=== PATIENT | female | born 1950 | race Caucasian/White ===

== ENCOUNTER 2017-05-01 16:29 | Inpatient (IN) | payer MEDICARE ==
[~2017-05-01] VITALS: Ht 147.3 cm; Wt 38.3 kg
[2017-05-01 16:58] LABS: BASOPHILS % (AUTO) 0.2 % (0.0-5.0); HEMATOCRIT 38.3 % (36-48); LYMPHOCYTES % (AUTO) 3.5 % (21.0-51.0); MEAN CORPUSCULAR HEMOGLOBIN 31.1 pg (27.0-33.0); MEAN CORPUSCULAR HGB CONC 33.7 g/dL (32.0-36.0); MEAN CORPUSCULAR VOLUME 92.2 fL (79-99); MONOCYTES % (AUTO) 3.5 % (3.0-13.0); NEUTROPHILS % (AUTO) 92.8 % (40.0-77.0); PLATELET COUNT (AUTO) 196 K/uL (130-400); RED BLOOD CELL COUNT(AUTO) 4.15 MIL/uL (4.00-5.50); RED CELL DISTRIBUTION WIDTH 14.4 % (11.0-15.5); WHITE BLOOD COUNT (AUTO) 8.1 K/uL (4.8-10.8)
[2017-05-01 17:15] LABS: CREATININE 0.5 mg/dL (0.5-1.5)
[2017-05-01] MEDS ORDERED: IPRATROPIUM/ALBUTEROL SULFATE 3 ML SOLUTION IH ONE (17:15)
[2017-05-01] MEDS ORDERED: SODIUM CHLORIDE 0.9% 1000ML 1,000 ML IV ONE (17:16)
[2017-05-01] MEDS ORDERED: METHYLPREDNISOLONE SOD SUCC 125MG/2ML VIAL ONE (17:16)
[2017-05-01 17:28] LABS: ALBUMIN 2.6 g/dL (3.5-5.0); BILIRUBIN,TOTAL 0.3 mg/dL (0.2-1.0); CREATINE KINASE MB 0.5 ng/mL (0.5-3.6); TOTAL PROTEIN, SERUM 6.5 g/dL (6.0-8.3)
[2017-05-01 17:31] LABS: INR 0.9 (0.85-1.15); PARTIAL THROMBOPLASTIN TIME 26.5 SEC (26.3-35.5); PROTHROMBIN TIME 9.5 SEC (9.6-11.6)
[2017-05-01] MEDS ORDERED: LEVOFLOXACIN 500 MG/D5W 100 ML 100 ML ONE (18:31)
[2017-05-01] MEDS ORDERED: OSELTAMIVIR PHOSPHATE 75 MG CAP ONE (18:31)
[2017-05-02] MEDS ORDERED: ONDANSETRON HCL 4 MG/2 ML VIAL IV PRN (00:15)
[2017-05-02] MEDS ORDERED: HYDRALAZINE HCL 20 MG/ML VIAL IV PRN (00:15)
[2017-05-02] MEDS ORDERED: ACETAMINOPHEN 325 MG TAB PO PRN (00:15)
[2017-05-02] MEDS ORDERED: IPRATROPIUM/ALBUTEROL SULFATE 3 ML SOLUTION IH ONE ×5 (03:03→18:04)
[2017-05-02] MEDS: IPRATROPIUM/ALBUTEROL SULFATE 3 ML SOLUTION IH SCH ×5 (06:00→21:23)
[2017-05-02] MEDS ORDERED: METHYLPREDNISOLONE SOD SUCC 40MG/ML 1ML ONE (07:46)
[2017-05-02] MEDS ORDERED: ENOXAPARIN SODIUM 30 MG/0.3 ML SQ ONE (07:47)
[2017-05-02] MEDS ORDERED: OSELTAMIVIR PHOSPHATE 75 MG CAP ONE (07:47)
[2017-05-02] MEDS ORDERED: FAMOTIDINE/PF 20 MG/2 ML VIAL IV ONE (07:47)
[2017-05-02] MEDS: ENOXAPARIN SODIUM 30 MG/0.3 ML SQ SCH (09:00)
[2017-05-02] MEDS: FAMOTIDINE/PF 20 MG/2 ML VIAL IV SCH ×2 (09:00→21:12)
[2017-05-02] MEDS: METHYLPREDNISOLONE SOD SUCC 125MG/2ML VIAL IV SCH ×2 (09:00→21:12)
[2017-05-02] MEDS ORDERED: LEVOFLOXACIN 500 MG/D5W 100 ML 100 ML ONE (17:18)
[2017-05-02 18:40] VITALS: BP 138/69
[2017-05-02] MEDS ORDERED: BIOT5000 PO (20:03)
[2017-05-02] MEDS ORDERED: FISH1CAP49 PO (20:03)
[2017-05-02] MEDS ORDERED: CALC1CAP4 PO (20:03)
[2017-05-02] MEDS ORDERED: ROFL500T PO (20:03)
[2017-05-02] MEDS ORDERED: ASPI-1197 PO (20:03)
[2017-05-02] MEDS ORDERED: ASCO100033 PO (20:03)
[2017-05-02] MEDS ORDERED: CHOL200074 PO (20:03)
[2017-05-02] MEDS ORDERED: MAGN400C PO (20:03)
[2017-05-02] MEDS ORDERED: AMLO10TA2 PO (20:03)
[2017-05-02] MEDS ORDERED: MONT10TA24 PO (20:03)
[2017-05-02] MEDS ORDERED: LEVA1.2514 IH (20:03)
[2017-05-02] MEDS ORDERED: UBID50CA23 PO (20:03)
[2017-05-02] MEDS ORDERED: FLUT1AER IH (20:03)
[2017-05-02] MEDS ORDERED: LISI-613 PO (20:03)
[2017-05-02] MEDS: OSELTAMIVIR PHOSPHATE 75 MG CAP PO SCH (21:12)
[2017-05-02 23:17] VITALS: BP 122/79
[2017-05-03] MEDS ORDERED: LEVOFLOXACIN 500 MG/D5W 100 ML 100 ML IV SCH
[2017-05-03] MEDS: IPRATROPIUM/ALBUTEROL SULFATE 3 ML SOLUTION IH SCH ×4 (02:27→14:09)
[2017-05-03 03:54] LABS: BASOPHILS % (AUTO) 0.2 % (0.0-5.0); HEMATOCRIT 36.9 % (36-48); MEAN CORPUSCULAR HEMOGLOBIN 31.4 pg (27.0-33.0); MEAN CORPUSCULAR HGB CONC 33.9 g/dL (32.0-36.0); MEAN CORPUSCULAR VOLUME 92.6 fL (79-99); MONOCYTES % (AUTO) 5.2 % (3.0-13.0); NEUTROPHILS % (AUTO) 90.6 % (40.0-77.0); PLATELET COUNT (AUTO) 209 K/uL (130-400); RED BLOOD CELL COUNT(AUTO) 3.98 MIL/uL (4.00-5.50); RED CELL DISTRIBUTION WIDTH 14.6 % (11.0-15.5); WHITE BLOOD COUNT (AUTO) 7.9 K/uL (4.8-10.8)
[2017-05-03 04:04] VITALS: BP 127/52
[2017-05-03 04:05] LABS: CREATININE 0.5 mg/dL (0.5-1.5); POTASSIUM 3.7 mmol/L (3.5-5.1)
[2017-05-03 08:03] VITALS: BP 139/79
[2017-05-03] MEDS: METHYLPREDNISOLONE SOD SUCC 125MG/2ML VIAL IV SCH (09:21)
[2017-05-03] MEDS: FAMOTIDINE/PF 20 MG/2 ML VIAL IV SCH (09:21)
[2017-05-03] MEDS: OSELTAMIVIR PHOSPHATE 75 MG CAP PO SCH (09:21)
[2017-05-03] MEDS: ENOXAPARIN SODIUM 30 MG/0.3 ML SQ SCH (09:30)
[2017-05-03 11:12] VITALS: BP 108/51
[2017-05-03] MEDS ORDERED: PRED20TA3 PO (15:54)
[2017-05-03] MEDS ORDERED: LEVO500T2 PO (15:54)
[2017-05-03] MEDS ORDERED: OSEL75 PO (15:54)
== END 2017-05-03 16:05 | disposition home or self-care (01) | DRG 194 ==
LOC: EDH 16:29 → EDHIP 18:20 → 2AH 05-02 18:34
PROVIDERS: ADMIT Family Medicine; ATTEND Family Medicine
DX: J10.1 Influenza due to other identified influenza virus with other respiratory manifestations (principal); J44.1 Chronic obstructive pulmonary disease with (acute) exacerbation; E44.0 Moderate protein-calorie malnutrition; Z68.1 Body mass index [BMI] 19.9 or less, adult; I10 Essential (primary) hypertension
CPT/HCPCS: 36415; 71045; 80048; 80053; 82550; 82553; 84484; 85025; 85610; 85730; 87071; 87205; 87804; 93005; 94640; 94664; J1650; J1956; J2920; J2930; J3490; J7030

== ENCOUNTER 2022-03-12 17:10 | Inpatient (IN) | payer MEDICARE ==
[~2022-03-12] VITALS: Ht 147.3 cm; Wt 45.0 kg
[~2022-03-12 17:10] MED LIST: AMLO-258 PO; ASCO100033 PO; ASPI-1197 PO; BIOT5000 PO; CALC1CAP4 PO; CHOL200074 PO; FISH1CAP49 PO; FLUT1AER IH; LEVA1.2542 IH; LEVO500T2 PO; LISI20TA24 PO; MAGN400C PO; MONT-39 PO; OSEL75 PO; PRED20TA3 PO; ROFL500T PO; UBID50CA23 PO
[2022-03-12] MEDS ORDERED: IPRATROPIUM 0.5 MG/2.5 ML INH IH ONE (17:21)
[2022-03-12] MEDS ORDERED: ALBUTEROL 0.083% 2.5 MG/3 ML INH IH ONE (17:21)
[2022-03-12] MEDS ORDERED: IPRATROPIUM/ALBUTEROL SULFATE 3 ML SOLUTION IH ONE (17:30)
[2022-03-12 17:33] LABS: HEMATOCRIT 47.5 % (36-48); LYMPHOCYTES % (AUTO) 10.6 % (21.0-51.0); MEAN CORPUSCULAR HEMOGLOBIN 30.1 pg (27.0-33.0); MEAN CORPUSCULAR HGB CONC 32.4 g/dL (32.0-36.0); MONOCYTES % (AUTO) 5.2 % (3.0-13.0); NEUTROPHILS % (AUTO) 83.8 % (40.0-77.0); PLATELET COUNT (AUTO) 180 K/uL (130-400); RED BLOOD CELL COUNT(AUTO) 5.11 MIL/uL (4.00-5.50); RED CELL DISTRIBUTION WIDTH 13.9 % (11.0-15.5); WHITE BLOOD COUNT (AUTO) 4.8 K/uL (4.8-10.8)
[2022-03-12 17:49] LABS: INR 0.93 (0.85-1.15); PROTHROMBIN TIME 9.9 SEC (9.6-11.6)
[2022-03-12 17:51] LABS: PARTIAL THROMBOPLASTIN TIME 25.1 SEC (26.3-35.5)
[2022-03-12 17:52] LABS: CREATININE 0.6 mg/dL (0.5-1.5); POTASSIUM 3.7 mmol/L (3.5-5.1)
[2022-03-12 17:54] LABS: ALBUMIN 3.4 g/dL (3.5-5.0)
[2022-03-12] MEDS ORDERED: SOLU-MEDROL 125MG VIAL IVP ONE (18:00)
[2022-03-12 18:18] LABS: ABG BASE EXCESS 4.1 mmol/L (-2.0-3.0); ABG HCO3 33.6 mmol/L (21.0-28.0); ABG OXYGEN SATURATION 99.7 % (95.0-99.0); ABG PCO2 73 mmHg (32-45)
[2022-03-12 18:42] LABS: B-TYPE NATRIURETIC PEPTIDE 84 pg/mL (0-100)
[2022-03-12] MEDS: LEVOFLOXACIN 500 MG/D5W 100 ML 100 ML IV SCH (18:49)
[2022-03-12] MEDS ORDERED: HYDROCODONE/ACETAMINOPHEN 5/325 MG TAB PO PRN ×2 (19:00)
[2022-03-12] MEDS ORDERED: ONDANSETRON 4MG INJ IV PRN (19:00)
[2022-03-12] MEDS ORDERED: ACETAMINOPHEN 325 MG TAB PO PRN ×2 (19:00)
[2022-03-12] MEDS: FAMOTIDINE 20MG VIAL IV SCH (21:08)
[2022-03-12] MEDS: IPRATROPIUM/ALBUTEROL SULFATE 3 ML SOLUTION IH SCH (21:39)
[2022-03-12] MEDS ORDERED: LEVOFLOXACIN 500 MG/D5W 100 ML 100 ML IV SCH (23:00)
[2022-03-12] MEDS ORDERED: LABETALOL 20MG VIAL IV PRN (23:30)
[2022-03-12 23:43] VITALS: BP 151/64
[2022-03-13] VITALS (40 sets, daily range): BP systolic 100–165; BP diastolic 47–94
[2022-03-13] MEDS: SOLU-MEDROL 40MG VIAL IVP SCH ×4 (00:17→21:52)
[2022-03-13] MEDS: IPRATROPIUM/ALBUTEROL SULFATE 3 ML SOLUTION IH SCH ×6 (02:32→22:33)
[2022-03-13 03:55] LABS: HEMATOCRIT 44.1 % (36-48); LYMPHOCYTES % (AUTO) 13.5 % (21.0-51.0); MEAN CORPUSCULAR HEMOGLOBIN 30.2 pg (27.0-33.0); MEAN CORPUSCULAR HGB CONC 31.5 g/dL (32.0-36.0); MEAN CORPUSCULAR VOLUME 95.9 fL (79-99); MONOCYTES % (AUTO) 2.1 % (3.0-13.0); NEUTROPHILS % (AUTO) 83.9 % (40.0-77.0); PLATELET COUNT (AUTO) 157 K/uL (130-400); RED CELL DISTRIBUTION WIDTH 13.7 % (11.0-15.5); WHITE BLOOD COUNT (AUTO) 4.3 K/uL (4.8-10.8)
[2022-03-13 04:23] LABS: CREATININE 0.5 mg/dL (0.5-1.5); POTASSIUM 4.2 mmol/L (3.5-5.1)
[2022-03-13 05:01] LABS: ERYTHROCYTE SEDIMENTATION RATE 11 MM/HR (0-30)
[2022-03-13] MEDS: INSULIN HUMULIN R 100 UNIT/ML 3ML SQ SCH ×4 (06:44→21:00)
[2022-03-13] MEDS: LEVOFLOXACIN 500 MG/D5W 100 ML 100 ML IV SCH (07:20)
[2022-03-13] MEDS: FAMOTIDINE 20MG VIAL IV SCH ×2 (07:57→20:06)
[2022-03-13] MEDS: ENOXAPARIN SODIUM 30 MG/0.3 ML SQ SCH (07:58)
[2022-03-13] MEDS: ZOSYN 3.375GM +NS 50ML IV SCH ×3 (08:55→20:06)
[2022-03-13 09:48] LABS: ABG BASE EXCESS 8.3 mmol/L (-2.0-3.0); ABG PCO2 78 mmHg (32-45)
[2022-03-13] MEDS ORDERED: MAGNESIUM 2GM PREMIX 50ML 50 ML IV SCH (10:00)
[2022-03-13] MEDS ORDERED: SODIUM CHLORIDE 3% FOR INHALATION 4 ML/AMP VIAL.NEB IH ONE ×2 (10:12→14:10)
[2022-03-13] MEDS ORDERED: SOLU-MEDROL 40MG VIAL IVP SCH (10:30)
[2022-03-13] MEDS ORDERED: DEXMEDETOMIDINE 400MCG/NS100ML IV ONE (10:45)
[2022-03-13] MEDS ORDERED: DEXMEDETOMIDINE 400MCG/NS100ML IV SCH (11:00)
[2022-03-13 11:50] LABS: INR 0.94 (0.85-1.15); PROTHROMBIN TIME 10.3 SEC (9.6-11.6)
[2022-03-13] MEDS ORDERED: LORA10TA7 PO (12:02)
[2022-03-13] MEDS ORDERED: DILT120C47 PO (12:02)
[2022-03-13 15:57] LABS: ABG BASE EXCESS 9.2 mmol/L (-2.0-3.0); ABG HCO3 37.9 mmol/L (21.0-28.0); ABG PCO2 70 mmHg (32-45)
[2022-03-13] MEDS ORDERED: BUDESONIDE 0.25 MG/2 ML INH IH SCH (18:00)
[2022-03-13] MEDS: DOXYCYCLINE HYCLATE 100 MG TABLET PO SCH (20:06)
[2022-03-13] MEDS: BUDESONIDE 0.5 MG/2 ML INH IH SCH (22:33)
[2022-03-13 23:05] LABS: APPEARANCE,URINE CLEAR (CLEAR); BILIRUBIN,URINE SMALL mg/dL (NEGATIVE); COLOR,URINE YELLOW (YELLOW); GLUCOSE, URINE (UA) NEGATIVE (NEGATIVE); KETONES,URINE 5 mg/dL (NEGATIVE); LEUKOCYTE ESTERASE ,URINE NEGATIVE Leu/uL (NEGATIVE); NITRATE,URINE NEGATIVE (NEGATIVE); OCCULT BLOOD,URINE LARGE (NEGATIVE); PROTEIN,URINE TRACE mg/dL (NEGATIVE); UROBILINOGEN,URINE 0.2 mg/dL (0.2-1.0)
[2022-03-13 23:18] LABS: BACTERIA,URINE Rare /HPF (None Seen); SQUAMOUS EPITHELIAL CELL,UR Rare /HPF (0-2)
[2022-03-14] VITALS (20 sets, daily range): BP systolic 96–152; BP diastolic 44–100
[2022-03-14] MEDS ORDERED: HYDRALAZINE 20MG/ML VIAL IV PRN
[2022-03-14] MEDS: IPRATROPIUM/ALBUTEROL SULFATE 3 ML SOLUTION IH SCH ×6 (02:11→22:13)
[2022-03-14 03:46] LABS: BASOPHILS % (AUTO) 0.1 % (0.0-5.0); HEMATOCRIT 41.6 % (36-48); LYMPHOCYTES % (AUTO) 12.1 % (21.0-51.0); MEAN CORPUSCULAR HEMOGLOBIN 29.7 pg (27.0-33.0); MEAN CORPUSCULAR HGB CONC 31.7 g/dL (32.0-36.0); MEAN CORPUSCULAR VOLUME 93.7 fL (79-99); MONOCYTES % (AUTO) 4.3 % (3.0-13.0); NEUTROPHILS % (AUTO) 83.1 % (40.0-77.0); PLATELET COUNT (AUTO) 175 K/uL (130-400); RED BLOOD CELL COUNT(AUTO) 4.44 MIL/uL (4.00-5.50); RED CELL DISTRIBUTION WIDTH 13.6 % (11.0-15.5); WHITE BLOOD COUNT (AUTO) 8.3 K/uL (4.8-10.8)
[2022-03-14 04:03] LABS: ALBUMIN 2.6 g/dL (3.5-5.0); CREATININE 0.6 mg/dL (0.5-1.5); MAGNESIUM 2.3 mg/dL (1.80-2.40); PHOSPHORUS 3.7 mg/dL (2.5-4.9); POTASSIUM 4.6 mmol/L (3.5-5.1); TOTAL PROTEIN, SERUM 6.1 g/dL (6.0-8.3)
[2022-03-14] MEDS: ZOSYN 3.375GM +NS 50ML IV SCH ×3 (04:55→19:57)
[2022-03-14] MEDS: INSULIN HUMULIN R 100 UNIT/ML 3ML SQ SCH ×4 (05:52→20:18)
[2022-03-14] MEDS: BUDESONIDE 0.5 MG/2 ML INH IH SCH ×2 (06:19→18:24)
[2022-03-14 07:03] LABS: ABG BASE EXCESS 7.8 mmol/L (-2.0-3.0); ABG HCO3 35.8 mmol/L (21.0-28.0); ABG OXYGEN SATURATION 97.8 % (95.0-99.0); ABG PCO2 64 mmHg (32-45)
[2022-03-14] MEDS: DOXYCYCLINE HYCLATE 100 MG TABLET PO SCH ×2 (07:32→19:57)
[2022-03-14] MEDS: FAMOTIDINE 20MG VIAL IV SCH ×2 (07:32→19:57)
[2022-03-14] MEDS: SOLU-MEDROL 40MG VIAL IVP SCH ×3 (07:32→23:04)
[2022-03-14] MEDS: MAGNESIUM OXIDE 400 MG TABLET PO SCH (07:34)
[2022-03-14] MEDS: ENOXAPARIN SODIUM 30 MG/0.3 ML SQ SCH (07:34)
[2022-03-14] MEDS ORDERED: SOLU-MEDROL 40MG VIAL IVP SCH (08:00)
[2022-03-14] MEDS ORDERED: BUDESONIDE 0.5 MG/2 ML INH IH SCH (09:30)
[2022-03-14] MEDS: FUROSEMIDE 40MG VIAL IV SCH ×2 (10:23→17:51)
[2022-03-14] MEDS: MONTELUKAST SODIUM 10 MG TAB PO SCH (19:57)
[2022-03-15] VITALS (24 sets, daily range): BP systolic 114–179; BP diastolic 52–92
[2022-03-15] MEDS: FUROSEMIDE 40MG VIAL IV SCH ×3 (02:01→17:30)
[2022-03-15] MEDS: IPRATROPIUM/ALBUTEROL SULFATE 3 ML SOLUTION IH SCH ×2 (02:42→06:21)
[2022-03-15 03:31] LABS: HEMATOCRIT 47.4 % (36-48); MEAN CORPUSCULAR HEMOGLOBIN 29.7 pg (27.0-33.0); MEAN CORPUSCULAR HGB CONC 31.4 g/dL (32.0-36.0); MEAN CORPUSCULAR VOLUME 94.4 fL (79-99); MONOCYTES % (AUTO) 5.7 % (3.0-13.0); PLATELET COUNT (AUTO) 204 K/uL (130-400); RED BLOOD CELL COUNT(AUTO) 5.02 MIL/uL (4.00-5.50)
[2022-03-15 03:52] LABS: ALBUMIN 3.1 g/dL (3.5-5.0); CREATININE 0.9 mg/dL (0.5-1.5); PHOSPHORUS 4.3 mg/dL (2.5-4.9); POTASSIUM 3.3 mmol/L (3.5-5.1)
[2022-03-15 03:52] LABS: ABG HCO3 47.8 mmol/L (21.0-28.0); ABG OXYGEN SATURATION 97.3 % (95.0-99.0); ABG PCO2 73 mmHg (32-45)
[2022-03-15] MEDS: ZOSYN 3.375GM +NS 50ML IV SCH ×3 (05:19→20:55)
[2022-03-15] MEDS: INSULIN HUMULIN R 100 UNIT/ML 3ML SQ SCH ×4 (05:19→20:16)
[2022-03-15] MEDS ORDERED: POTASSIUM CHLORIDE 20MEQ/100ML 100 ML IV PRN (06:00)
[2022-03-15] MEDS ORDERED: LIDOCAINE HCL-MPF 1% 2ML VIAL IV PRN (06:00)
[2022-03-15] MEDS ORDERED: KCL 20 MEQ ERTAB PO PRN (06:00)
[2022-03-15] MEDS ORDERED: POTASSIUM CHLORIDE 10% ELIXIR 20 MEQ/15 ML UDCUP ONE (06:07)
[2022-03-15] MEDS: SOLU-MEDROL 40MG VIAL IVP SCH ×3 (06:19→22:38)
[2022-03-15] MEDS: BUDESONIDE 0.5 MG/2 ML INH IH SCH ×2 (06:22→18:53)
[2022-03-15] MEDS: POTASSIUM CHLORIDE 10% ELIXIR 20 MEQ/15 ML UDCUP PO PRN ×2 (06:48→09:02)
[2022-03-15] MEDS ORDERED: NON-FORMULARY MEDICATION 1 EACH (Magnesium Oxide (Magnesium) 400 MG) PO SCH (09:00)
[2022-03-15] MEDS ORDERED: FLUTICASONE/VILANTEROL 1 EACH AER.POW.BA IH SCH (09:00)
[2022-03-15] MEDS ORDERED: NON-FORMULARY MEDICATION 1 EACH (Ascorbic Acid (Vitamin C) 1,000 MG) PO SCH (09:00)
[2022-03-15] MEDS: ENOXAPARIN SODIUM 30 MG/0.3 ML SQ SCH (09:01)
[2022-03-15] MEDS: FAMOTIDINE 20MG VIAL IV SCH ×2 (09:02→20:54)
[2022-03-15] MEDS: ASCORBIC ACID 500 MG TAB PO SCH (09:03)
[2022-03-15] MEDS: DOXYCYCLINE HYCLATE 100 MG TABLET PO SCH ×2 (09:03→21:10)
[2022-03-15] MEDS: LORATADINE 10 MG TABLET PO SCH (09:03)
[2022-03-15] MEDS: ASPIRIN 81MG CHEW TAB PO SCH (09:03)
[2022-03-15] MEDS: DILTIAZEM 120MG SR CAP PO SCH (09:03)
[2022-03-15] MEDS: MAGNESIUM OXIDE 400 MG TABLET PO SCH (09:07)
[2022-03-15] MEDS: FLUTICASONE/VILANTEROL 1 EACH AER.POW.BA IH SCH (09:40)
[2022-03-15] MEDS: IPRATROPIUM 0.5 MG/2.5 ML INH IH SCH ×4 (10:00→23:06)
[2022-03-15] MEDS ORDERED: IOHEXOL 350 MG/ML 100ML INFUS..BTL IV ONE (17:16)
[2022-03-15] MEDS ORDERED: LORAZEPAM 2 MG/ML 1 ML VIAL IVP ONE (17:30)
[2022-03-15] MEDS: MONTELUKAST SODIUM 10 MG TAB PO SCH (20:55)
[2022-03-16] VITALS (24 sets, daily range): BP systolic 129–166; BP diastolic 53–91
[2022-03-16] MEDS: IPRATROPIUM 0.5 MG/2.5 ML INH IH SCH ×6 (01:12→21:46)
[2022-03-16 03:33] LABS: BASOPHILS % (AUTO) 0.1 % (0.0-5.0); EOSINOPHILS % (AUTO) 0.1 % (0.0-8.0); HEMATOCRIT 46.4 % (36-48); LYMPHOCYTES % (AUTO) 8.7 % (21.0-51.0); MEAN CORPUSCULAR HEMOGLOBIN 29.8 pg (27.0-33.0); MEAN CORPUSCULAR HGB CONC 32.5 g/dL (32.0-36.0); MEAN CORPUSCULAR VOLUME 91.7 fL (79-99); MONOCYTES % (AUTO) 4.1 % (3.0-13.0); NEUTROPHILS % (AUTO) 86.7 % (40.0-77.0); PLATELET COUNT (AUTO) 204 K/uL (130-400); RED BLOOD CELL COUNT(AUTO) 5.06 MIL/uL (4.00-5.50); RED CELL DISTRIBUTION WIDTH 14.1 % (11.0-15.5)
[2022-03-16 03:43] LABS: ABG BASE EXCESS 7.7 mmol/L (-2.0-3.0); ABG HCO3 35.7 mmol/L (21.0-28.0); ABG OXYGEN SATURATION 96.9 % (95.0-99.0); ABG PCO2 65 mmHg (32-45)
[2022-03-16 03:50] LABS: ALBUMIN 2.8 g/dL (3.5-5.0); CREATININE 0.7 mg/dL (0.5-1.5); MAGNESIUM 2.3 mg/dL (1.80-2.40); PHOSPHORUS 4.4 mg/dL (2.5-4.9); POTASSIUM 4.6 mmol/L (3.5-5.1); TOTAL PROTEIN, SERUM 6.5 g/dL (6.0-8.3)
[2022-03-16] MEDS: FUROSEMIDE 40MG VIAL IV SCH ×3 (03:58→16:33)
[2022-03-16] MEDS: ZOSYN 3.375GM +NS 50ML IV SCH ×3 (03:58→20:51)
[2022-03-16] MEDS: BUDESONIDE 0.5 MG/2 ML INH IH SCH (06:12)
[2022-03-16] MEDS: INSULIN HUMULIN R 100 UNIT/ML 3ML SQ SCH ×4 (06:40→20:50)
[2022-03-16] MEDS: SOLU-MEDROL 40MG VIAL IVP SCH ×3 (06:43→23:30)
[2022-03-16] MEDS: ASPIRIN 81MG CHEW TAB PO SCH (07:36)
[2022-03-16] MEDS: MAGNESIUM OXIDE 400 MG TABLET PO SCH (07:37)
[2022-03-16] MEDS: DILTIAZEM 120MG SR CAP PO SCH (07:37)
[2022-03-16] MEDS: ASCORBIC ACID 500 MG TAB PO SCH (07:37)
[2022-03-16] MEDS: LORATADINE 10 MG TABLET PO SCH (07:37)
[2022-03-16] MEDS: FLUTICASONE/VILANTEROL 1 EACH AER.POW.BA IH SCH (07:38)
[2022-03-16] MEDS: DOXYCYCLINE HYCLATE 100 MG TABLET PO SCH ×2 (08:08→20:50)
[2022-03-16] MEDS: FAMOTIDINE 20MG VIAL IV SCH ×2 (08:08→20:51)
[2022-03-16] MEDS: ENOXAPARIN SODIUM 30 MG/0.3 ML SQ SCH (08:09)
[2022-03-16] MEDS: MONTELUKAST SODIUM 10 MG TAB PO SCH (20:50)
[2022-03-17] VITALS (8 sets, daily range): BP systolic 124–161; BP diastolic 64–93
[2022-03-17] MEDS: FUROSEMIDE 40MG VIAL IV SCH ×3 (01:30→17:47)
[2022-03-17] MEDS: IPRATROPIUM 0.5 MG/2.5 ML INH IH SCH ×5 (02:56→23:20)
[2022-03-17 03:40] LABS: BASOPHILS % (AUTO) 0.1 % (0.0-5.0); HEMATOCRIT 52.4 % (36-48); LYMPHOCYTES % (AUTO) 11.3 % (21.0-51.0); MEAN CORPUSCULAR HEMOGLOBIN 29.8 pg (27.0-33.0); MEAN CORPUSCULAR HGB CONC 32.8 g/dL (32.0-36.0); MEAN CORPUSCULAR VOLUME 90.8 fL (79-99); MONOCYTES % (AUTO) 5.2 % (3.0-13.0); NEUTROPHILS % (AUTO) 82.9 % (40.0-77.0); PLATELET COUNT (AUTO) 242 K/uL (130-400); RED BLOOD CELL COUNT(AUTO) 5.77 MIL/uL (4.00-5.50); RED CELL DISTRIBUTION WIDTH 13.6 % (11.0-15.5); WHITE BLOOD COUNT (AUTO) 8.8 K/uL (4.8-10.8)
[2022-03-17 03:53] LABS: CREATININE 0.9 mg/dL (0.5-1.5); MAGNESIUM 2.4 mg/dL (1.80-2.40); PHOSPHORUS 5.4 mg/dL (2.5-4.9); POTASSIUM 3.9 mmol/L (3.5-5.1); TOTAL PROTEIN, SERUM 7.2 g/dL (6.0-8.3)
[2022-03-17] MEDS: ZOSYN 3.375GM +NS 50ML IV SCH ×3 (05:00→20:38)
[2022-03-17] MEDS: SOLU-MEDROL 40MG VIAL IVP SCH ×2 (05:00→14:22)
[2022-03-17] MEDS: INSULIN HUMULIN R 100 UNIT/ML 3ML SQ SCH ×4 (07:30→21:59)
[2022-03-17] MEDS: ENOXAPARIN SODIUM 30 MG/0.3 ML SQ SCH (09:30)
[2022-03-17] MEDS: FAMOTIDINE 20MG VIAL IV SCH ×2 (09:30→20:38)
[2022-03-17] MEDS: DOXYCYCLINE HYCLATE 100 MG TABLET PO SCH ×2 (09:30→20:38)
[2022-03-17] MEDS: MAGNESIUM OXIDE 400 MG TABLET PO SCH (09:31)
[2022-03-17] MEDS: ASPIRIN 81MG CHEW TAB PO SCH (09:31)
[2022-03-17] MEDS: LORATADINE 10 MG TABLET PO SCH (09:31)
[2022-03-17] MEDS: ASCORBIC ACID 500 MG TAB PO SCH (09:32)
[2022-03-17] MEDS: DILTIAZEM 120MG SR CAP PO SCH (09:32)
[2022-03-17] MEDS: MONTELUKAST SODIUM 10 MG TAB PO SCH (20:47)
[2022-03-18] VITALS: BP 148/86
[2022-03-18] MEDS: FUROSEMIDE 40MG VIAL IV SCH (02:16)
[2022-03-18 04:00] VITALS: BP 127/83
[2022-03-18] MEDS: INSULIN HUMULIN R 100 UNIT/ML 3ML SQ SCH ×2 (05:50→11:30)
[2022-03-18] MEDS: ZOSYN 3.375GM +NS 50ML IV SCH ×2 (06:06→13:00)
[2022-03-18] MEDS: IPRATROPIUM 0.5 MG/2.5 ML INH IH SCH ×2 (06:50→11:24)
[2022-03-18] MEDS ORDERED: BUDESONIDE 0.5 MG/2 ML INH IH ONE (06:56)
[2022-03-18 07:00] VITALS: BP 137/80
[2022-03-18 08:43] LABS: CREATININE 0.9 mg/dL (0.5-1.5)
[2022-03-18] MEDS: ENOXAPARIN SODIUM 30 MG/0.3 ML SQ SCH (08:54)
[2022-03-18] MEDS: DOXYCYCLINE HYCLATE 100 MG TABLET PO SCH (08:55)
[2022-03-18] MEDS: LORATADINE 10 MG TABLET PO SCH (08:55)
[2022-03-18] MEDS: ASPIRIN 81MG CHEW TAB PO SCH ×2 (08:55→09:00)
[2022-03-18] MEDS: ASCORBIC ACID 500 MG TAB PO SCH ×2 (08:56→09:00)
[2022-03-18] MEDS: DILTIAZEM 120MG SR CAP PO SCH ×2 (08:56→09:00)
[2022-03-18] MEDS: MAGNESIUM OXIDE 400 MG TABLET PO SCH ×2 (08:57→09:00)
[2022-03-18] MEDS ORDERED: FUROSEMIDE 40 MG TABLET PO SCH (09:00)
[2022-03-18] MEDS ORDERED: FAMOTIDINE 20MG TAB PO SCH (09:00)
[2022-03-18] MEDS ORDERED: PREDNISONE 20 MG TABLET PO SCH (09:00)
[2022-03-18 12:17] VITALS: BP 116/93
[2022-03-18] MEDS ORDERED: AMOX-426 PO (12:38)
[2022-03-18] MEDS ORDERED: PRED20TA3 PO (12:38)
== END 2022-03-18 14:30 | disposition home or self-care (01) | DRG 193 ==
LOC: EDH 17:10 → EDHIP 18:55 → 2DH 23:03 → 2CH 03-13 10:14 → 2DH 03-17 06:06
PROVIDERS: ADMIT Hospitalist; ATTEND Hospitalist
PROC: 5A09357 Assistance with Respiratory Ventilation, Less than 24 Consecutive Hours, Continuous Positive Airway Pressure (ICD-10-PCS; principal; 2022-03-12)
PROC: 5A09357 Assistance with Respiratory Ventilation, Less than 24 Consecutive Hours, Continuous Positive Airway Pressure (ICD-10-PCS; 2022-03-13)
PROC: 5A09357 Assistance with Respiratory Ventilation, Less than 24 Consecutive Hours, Continuous Positive Airway Pressure (ICD-10-PCS; 2022-03-14)
PROC: 5A09357 Assistance with Respiratory Ventilation, Less than 24 Consecutive Hours, Continuous Positive Airway Pressure (ICD-10-PCS; 2022-03-17)
PROC: 5A09357 Assistance with Respiratory Ventilation, Less than 24 Consecutive Hours, Continuous Positive Airway Pressure (ICD-10-PCS; 2022-03-18)
DX: J15.9 Unspecified bacterial pneumonia (principal); J96.21 Acute and chronic respiratory failure with hypoxia; J96.22 Acute and chronic respiratory failure with hypercapnia; J44.1 Chronic obstructive pulmonary disease with (acute) exacerbation; E44.1 Mild protein-calorie malnutrition; R64 Cachexia; J44.0 Chronic obstructive pulmonary disease with (acute) lower respiratory infection; Z20.822 Contact with and (suspected) exposure to COVID-19; Z68.20 Body mass index [BMI] 20.0-20.9, adult; G47.33 Obstructive sleep apnea (adult) (pediatric); I10 Essential (primary) hypertension; Z79.51 Long term (current) use of inhaled steroids; Z87.891 Personal history of nicotine dependence; Z79.899 Other long term (current) drug therapy
CPT/HCPCS: 36415; 36600; 71045; 71270; 80048; 80053; 81001; 82803; 82948; 83605; 83735; 83880; 84100; 84484; 85025; 85378; 85610; 85651; 85730; 87040; 87635; 87804; 87880; 93005; 93306; 93356; 94640; 94660; 94664; 94667; 94668; C9803; G0378; J0360; J1650; J1815; J1940; J1956; J2060; J2405; J2543; J2920; J2930; J3475; J3480; J3490; Q9967